=== PATIENT | female | born 1995 | race Caucasian/White ===

== ENCOUNTER 2021-01-14 05:09 | Emergency (ER) | payer OTHER ==
[~2021-01-14 05:09] MED LIST: AUGMENTIN 875-1 EACH PO; COZAAR 25MG TAB25 MG PO; FAMOTIDINE20 MG PO; LOPRESSOR 25 MG25 MG PO; PREDNISONE20 MG PO; TAB-A-VITE1 EACH PO; VENTOLIN HFA 66.7 GM INH
== END 2021-01-14 05:47 | disposition home or self-care (01) ==
LOC: ER1 05:09
DX: K02.9 Dental caries, unspecified (principal)
CPT/HCPCS: 99282

== ENCOUNTER 2021-06-06 09:55 | Emergency (ER) | payer OTHER | END 2021-06-06 11:56 | disposition home or self-care (01) | LOC: ER1 09:55 | DX: R19.7 Diarrhea, unspecified (principal); M25.572 Pain in left ankle and joints of left foot; F17.200 Nicotine dependence, unspecified, uncomplicated | CPT/HCPCS: 99283 ==

== ENCOUNTER 2022-05-10 18:08 | Emergency (ER) | payer OTHER | END 2022-05-10 22:55 | disposition left against medical advice (07) | LOC: ER1 18:08 | DX: M54.2 Cervicalgia (principal) | CPT/HCPCS: 99283 ==

== ENCOUNTER 2022-05-12 16:45 | Inpatient (IN) | payer MEDICAID ==
[~2022-05-12] VITALS: Ht 160 cm; Wt 69.1 kg
[2022-05-12 19:22] LABS: HEMOGLOBIN 12.9 gm/dl (12.3-15.3); RED BLOOD COUNT 4.49 M/UL (4.00-5.10); WHITE BLOOD COUNT 11.4 K/UL (4.5-11.0)
[2022-05-12 21:20] LABS: BUN/CREATININE RATIO 15 (0-10)
[2022-05-13 06:40] LABS: HEMOGLOBIN 11.9 gm/dl (12.3-15.3); RED BLOOD COUNT 4.24 M/UL (4.00-5.10); WHITE BLOOD COUNT 9.8 K/UL (4.5-11.0)
[2022-05-13 07:03] LABS: BUN/CREATININE RATIO 19 (0-10)
--- NOTE | 2022-05-13 17:51 | NUR ---
1739- Notified Dr. Pichardo of patient stating she wanted to leave AMA related to pain and not getting enough pain medication. Dr. Pichardo stated he would be to floor to talk with patient.
== END 2022-05-14 10:30 | disposition left against medical advice (07) | DRG 558 ==
LOC: ER1 16:45 → CDU 20:20 → MED SURG 4 20:20
PROVIDERS: Preventive Medicine Occupational Medicine; ADMIT Internal Medicine
DX: M60.009 Infective myositis, unspecified site (principal); L03.221 Cellulitis of neck; Z20.822 Contact with and (suspected) exposure to COVID-19; I42.8 Other cardiomyopathies; F19.10 Other psychoactive substance abuse, uncomplicated; B19.20 Unspecified viral hepatitis C without hepatic coma; Z59.00 Homelessness unspecified
CPT/HCPCS: ECHO; 70490; 71045; 80048; 80053; 80307; 81001; 83690; 85025; 85652; 86140; 87040; 87086; 93306; 96365; 96366; 96375; 99285; J0696; J1170; J1650; J1885; J2405; J3370; J7030; J7070

== ENCOUNTER 2022-05-23 15:39 | Inpatient (IN) | payer MEDICAID ==
[~2022-05-23] VITALS: Ht 160 cm; Wt 61.2 kg
[2022-05-23 16:46] LABS: HEMOGLOBIN 12.5 gm/dl (12.3-15.3); RED BLOOD COUNT 4.5 M/UL (4.00-5.10); WHITE BLOOD COUNT 13.4 K/UL (4.5-11.0)
[2022-05-23 17:08] LABS: BUN/CREATININE RATIO 14 (0-10)
[2022-05-24 09:46] LABS: KPC-CARBAPENEM-RESISTANCE GENE Not Detected (Negative); STREPTOCOCCUS Not Detected (Negative); vanA/B (VANCOMYCIN RESIST GENE Not Detected (Negative)
[2022-05-24 09:47] LABS: CANDIDA ALBICANS Not Detected (Negative); CANDIDA KRUSEI Not Detected (Negative); CANDIDA TROPICALIS Not Detected (Negative); ESCHERICHIA COLI Not Detected (Negative); HAEMOPHILUS INFLUENZAE Not Detected (Negative); KLEBSIELLA OXYTOCA Not Detected (Negative); KLEBSIELLA PNEUMONIAE Not Detected (Negative); PROTEUS Not Detected (Negative); PSEUDOMONAS AERUGINOSA Not Detected (Negative); SERRATIA MARCESANS Not Detected (Negative); STAPHYLOCOCCUS DETECTED (Negative); STAPHYLOCOCCUS AUREUS DETECTED (Negative); STREP AGALACTIAE (GROUP B) Not Detected (Negative); STREP PYOGENES (GROUP A) Not Detected (Negative)
== END 2022-05-24 05:54 | disposition left against medical advice (07) | DRG 603 ==
LOC: ER1 15:39 → CDU 17:55 → M/S 19:50
PROVIDERS: Physician Assistant; ADMIT Internal Medicine Infectious Disease
PROC: 0J940ZZ Drainage of Right Neck Subcutaneous Tissue and Fascia, Open Approach (ICD-10-PCS; principal; 2022-05-23)
DX: L03.221 Cellulitis of neck (principal); I42.9 Cardiomyopathy, unspecified; B95.7 Other staphylococcus as the cause of diseases classified elsewhere; R00.0 Tachycardia, unspecified; L02.11 Cutaneous abscess of neck; F19.10 Other psychoactive substance abuse, uncomplicated; B18.2 Chronic viral hepatitis C; F17.210 Nicotine dependence, cigarettes, uncomplicated
CPT/HCPCS: 10060; 80053; 83605; 84703; 85025; 87040; 87070; 87077; 87150; 87205; 94760; 96374; 99284; J2185; J2704; J3370; J7030; J7070

== ENCOUNTER 2022-05-24 16:29 | Emergency (ER) | payer MEDICAID ==
[2022-05-24 17:18] LABS: HEMOGLOBIN 12.4 gm/dl (12.3-15.3); RED BLOOD COUNT 4.6 M/UL (4.00-5.10); WHITE BLOOD COUNT 10.9 K/UL (4.5-11.0)
[2022-05-24 17:39] LABS: BUN/CREATININE RATIO 15 (0-10)
== END 2022-05-24 20:25 | disposition left against medical advice (07) ==
LOC: ER1 16:29
PROVIDERS: Physician Assistant
DX: L02.11 Cutaneous abscess of neck (principal); F17.200 Nicotine dependence, unspecified, uncomplicated
CPT/HCPCS: 80053; 85025; 99283

== ENCOUNTER 2022-05-25 08:08 | Emergency (ER) | payer MEDICAID ==
[~2022-05-25] VITALS: Ht 160 cm; Wt 61.2 kg
[2022-05-25 09:28] LABS: HEMOGLOBIN 12.2 gm/dl (12.3-15.3); RED BLOOD COUNT 4.43 M/UL (4.00-5.10)
[2022-05-25 09:30] LABS: WHITE BLOOD COUNT 7.2 K/UL (4.5-11.0)
[2022-05-25 09:52] LABS: BUN/CREATININE RATIO 15 (0-10)
[2022-05-26] MEDS ORDERED: CLEOCIN HCL300 MG PO (10:19)
== END 2022-05-25 13:05 | disposition left against medical advice (07) ==
LOC: ER1 08:08 → CDU 10:33
PROVIDERS: Physician Assistant
DX: L02.11 Cutaneous abscess of neck (principal); R78.81 Bacteremia; F17.200 Nicotine dependence, unspecified, uncomplicated
CPT/HCPCS: 80053; 83605; 85025; 85652; 86140; 87040; 96374; 96375; 99283; J0692; J2185; J3370; J7030; J7070

== ENCOUNTER 2022-05-26 06:28 | Emergency (ER) | payer MEDICAID ==
[2022-05-26 08:03] LABS: HEMOGLOBIN 11.4 gm/dl (12.3-15.3); RED BLOOD COUNT 4.14 M/UL (4.00-5.10)
[2022-05-26 08:33] LABS: WHITE BLOOD COUNT 10.7 K/UL (4.5-11.0)
[2022-05-26 09:27] LABS: BUN/CREATININE RATIO 10 (0-10)
[2022-05-26] MEDS ORDERED: CLEOCIN HCL300 MG PO (10:19)
== END 2022-05-26 10:30 | disposition left against medical advice (07) ==
LOC: ER1 06:28
PROVIDERS: Physician Assistant
DX: L02.11 Cutaneous abscess of neck (principal); R78.81 Bacteremia; F11.20 Opioid dependence, uncomplicated; F17.200 Nicotine dependence, unspecified, uncomplicated
CPT/HCPCS: 80053; 83605; 85025; 87040; 99283; J2185; J3370; J7030